=== PATIENT | female | born 1980 | race African-American/Black ===

== ENCOUNTER 2020-09-28 08:59 | Emergency (ER) | payer OTHER ==
[~2020-09-28] VITALS: Ht 157.5 cm; Wt 56.2 kg
[~2020-09-28 08:59] MED LIST: CIPROFLOXACIN500 M3 PO; FLEXERIL PO; MOBIC15 MG PO; NORCO 5-325 TA1 EACH PO
[2020-09-28 09:30] LABS: ABSOLUTE NEUTROPHILS 6.5 thou/uL (1.4-8.2); BASOPHILS 0.8 % (0.0-2.0); EOSINOPHILS 0.3 % (0.0-3.0); HEMATOCRIT 31.8 % (37.0-47.0); HEMOGLOBIN 10.2 gm/dL (12.0-15.0); LYMPHOCYTES 21.3 % (24.0-44.0); MCH 26.4 pg (26.0-34.0); MCHC 32.2 g/dL (28.0-37.0); MCV 81.9 fL (80.0-100.0); MONOCYTES 7.4 % (1.0-8.0); PLATELET COUNT 308 thou/uL (150-400); POLYS 70.2 % (36.0-66.0); RBC 3.88 mil/uL (4.20-5.00); WBC 9.2 thou/uL (4.0-11.0)
[2020-09-28 09:35] LABS: ANION GAP 10 mmol/L (7-16); BUN 8 mg/dL (7-18); CALCIUM 8.8 mg/dL (8.5-10.1); CHLORIDE 105 mmol/L (98-107); CO2 23 mmol/L (21-32); CREATININE 0.7 mg/dL (0.6-1.0); GLUCOSE 90 mg/dL (74-106); POTASSIUM 3.8 mmol/L (3.5-5.1); SODIUM 138 mmol/L (136-145)
[2020-09-28 09:46] LABS: ALBUMIN 3.6 g/dL (3.4-5.0); SGOT 23 U/L (15-37); SGPT 30 U/L (14-59); TOTAL BILIRUBIN 0.1 mg/dL (0.2-1.0); TOTAL PROTEIN 7.4 g/dL (6.4-8.2); TROPONIN-I <0.06 ng/mL (<0.06)
[2020-09-28 13:00] VITALS: BP 127/87
--- NOTE | 2020-09-29 09:39 | EKG ---
[address] [employer] [place] [address] ELECTROCARDIOGRAM REPORT Name: JOSEP SOLITARIO [facility] [id number] Admission: 09/28/20 Attend Phys: Discharge: 09/28/20 Date of : 76 Report #: [id number] [facility] ED Test Date: 2020-09-28 Test Time: 09:15:16 Pat Name: JOSEP SOLITARIO Department: Room: Gender: F Mason Liner: TREMAYNE : 1980 Requested By: Kim Ledezma Order Number: [id number] MD: Nba De Leon Measurements Intervals [place]nard Rate: 88 P: 49 NV: 139 QRS: 47 QRSD: 132 T: 30 QT: 420 QTc: 509 Interpretive Statements Sinus rhythm Right bundle branch block No previous ECG available for comparison Electronically Signed On 09-29-2020 9:39:22 CDT by Nba De Leon [email or web address] <ELECTRONICALLY SIGNED> By: Nba De Leon MD, [facility] 09/29/20 0939 0915 0915 Nba De Leon MD, FACC /EPI
== END 2020-09-28 13:00 | disposition home or self-care (01) ==
LOC: ER 08:59
PROVIDERS: Emergency Medicine
DX: R03.0 Elevated blood-pressure reading, without diagnosis of hypertension (principal); R51.9 Headache, unspecified; K21.9 Gastro-esophageal reflux disease without esophagitis; F17.210 Nicotine dependence, cigarettes, uncomplicated